=== PATIENT | female | born 1940 | race Caucasian/White ===

== ENCOUNTER 2018-10-26 10:46 | Outpatient (CLI) | payer BC ==
--- NOTE | 2018-11-08 08:33 | MMO ---
Bilateral MAMMO Bilat Screen DDI. CLINICAL HISTORY: Patient is 77 years old and is seen for screening. The patient has the following family history of breast cancer: paternal aunt, malignant (generic). The patient has a history of kidney cancer at age 74. VIEWS: The views performed were: bilateral craniocaudal and bilateral mediolateral oblique. FILMS COMPARED: The present examination has been compared to prior imaging studies performed at [facility] on 10/15/2015, 10/15/2016 and 10/05/2017. This study has been interpreted with the assistance of computer-aided detection. MAMMOGRAM FINDINGS: There are scattered fibroglandular densities. Right breast: Focal asymmetry in the upper rigth breast only seen in the MLO view. Left breast: stable biopsy clip. There are benign appearing calcifications in the left breast. In the left breast, there are no suspicious masses, calcifications or areas of architectural distortion. IMPRESSION: FINDING IN THE RIGHT BREAST REQUIRES ADDITIONAL EVALUATION. ADDITIONAL PROJECTIONS (RIGHT MEDIOLATERAL OBLIQUE SPOT COMPRESSION AND RIGHT MEDIOLATERAL) ARE RECOMMENDED. ULTRASOUND IF FOCAL ASYMMETRY PERSISTS. ACR BI-RADS Category 0 - Incomplete: Need additional imaging evaluation. [facility] will notify the patient of the need for additional imaging services. MAMMOGRAPHY NOTE: 1. A negative mammogram report should not delay a biopsy if a dominant of clinically suspicious mass is present. 2. Approximately 10% to 15% of breast cancers are not detected by mammography. 3. Adenosis and dense breasts may obscure an underlying neoplasm.
== END 2018-10-26 10:47 | disposition home or self-care (01) ==
LOC: SCSMAMMO 10:46
PROVIDERS: ATTEND Internal Medicine Geriatric Medicine
DX: Z12.31 Encounter for screening mammogram for malignant neoplasm of breast (principal); Z80.3 Family history of malignant neoplasm of breast; Z85.528 Personal history of other malignant neoplasm of kidney
CPT/HCPCS: 77067

== ENCOUNTER 2018-11-10 13:00 | Outpatient (CLI) | payer MEDICARE, BC ==
--- NOTE | 2018-11-10 13:53 | MMO ---
Right Breast MAMMO Unilat Diag DDI RT+BELLE. CLINICAL HISTORY: Patient is 77 years old and is seen for additional evaluation requested from prior study. The patient has the following family history of breast cancer: paternal aunt, malignant (generic). The patient has a history of kidney cancer at age 74. VIEWS: The views performed were: right mediolateral oblique with tomosynthesis; right mediolateral oblique spot compression with tomosynthesis; right mediolateral with tomosynthesis; and right exaggerated craniocaudal. FILMS COMPARED: The present examination has been compared to prior imaging studies performed at [facility] on 10/26/2018, at [facility] on 11/10/2018, and at [facility] on 10/15/2016 and 10/05/2017. MAMMOGRAM FINDINGS: Additional views demonstrate an intramammary lymph node in the deep upper outer quadrant. There is a corresponding node on US. There are no suspicious masses, suspicious calcifications, or new areas of architectural distortion. IMPRESSION: THERE IS NO MAMMOGRAPHIC EVIDENCE OF MALIGNANCY. A ROUTINE FOLLOW-UP MAMMOGRAM IN 1 YEAR IS RECOMMENDED. THE RESULTS OF THIS EXAM WERE SENT TO THE PATIENT. ACR BI-RADS Category 2 - Benign finding MAMMOGRAPHY NOTE: 1. A negative mammogram report should not delay a biopsy if a dominant of clinically suspicious mass is present. 2. Approximately 10% to 15% of breast cancers are not detected by mammography. 3. Adenosis and dense breasts may obscure an underlying neoplasm. Reported by: EFFIE GALAVIZ MD Electonically Signed: [id number]
--- NOTE | 2018-11-10 15:42 | ULT ---
RIGHT BREAST ULTRASOUND: 11/10/18 HISTORY: Asymmetry noted in the upper right breast only on the MLO projection, screening study. FINDINGS: Targeted sonographic imaging of the upper outer quadrant was performed, near the axilla. There is raquel dence of a solid echotexture focus with a fatty hilum, compatible with an intramammary lymph node. Ly mph node measures 0.5 x 1.4 x 0.8 cm. IMPRESSION: BIRADS 2: Benign Finding(s). Intramammary lymph node corresponding to mammographic finding. Routine annual screening mammography (for women over age 40). RECOMMENDATION: Annual mammogram. POS: [facility]
== END 2018-11-10 13:01 | disposition home or self-care (01) ==
LOC: BICMAMMO 13:00
PROVIDERS: ATTEND Internal Medicine Geriatric Medicine
DX: R92.2 Inconclusive mammogram (principal); Z80.3 Family history of malignant neoplasm of breast; Z85.528 Personal history of other malignant neoplasm of kidney
CPT/HCPCS: 76642; 77065; G0279